=== PATIENT | male | born 1950 | race Two or more races ===

== ENCOUNTER 2016-11-27 08:14 | Day surgery (SDC) | payer OTHER ==
[~2016-11-27] VITALS: Ht 165.1 cm; Wt 78.9 kg
[2016-11-27 09:24] VITALS: Ht 165.1 cm; Wt 78.9 kg
[2016-11-27] MEDS ORDERED: HIGH CHOLESTEROL MED PO (09:42)
[2016-11-27] MEDS ORDERED: IBUPROFEN PO (09:42)
[2016-11-27] MEDS ORDERED: HTN MED PO (09:42)
[2016-11-27 09:55] VITALS: BP 159/91; PULSE 72; RESP 24
[2016-11-27] MEDS ORDERED: FENTAnyl 50 MCG/ML VIAL ONE (10:39)
[2016-11-27] MEDS ORDERED: MIDAZOLAM 1 MG/ML 2 ML INJ ONE ×2 (10:39)
[2016-11-27 11:03] VITALS: BP 134/80; RESP 20
--- NOTE | 2016-11-27 23:17 | GILP ---
DATE OF PROCEDURE: PROCEDURE: Colonoscopy with polypectomy. INDICATION: A 66-year-old male undergoing this procedure for colon cancer screening. The risks of the procedure, related and unrelated complications, sedative risks, alternatives discussed and infor med consent was obtained. DESCRIPTION OF PROCEDURE: The patient was brought to the GI lab, sedated with Versed 4 mg, fentanyl 75 mg. After optimal sedation, digital examination done, which was normal. Scope was passed with much ease into the rectum and advanced slowly through sigmoid, descending, transverse colon all the way into the cecum. Appendiceal orifice and IC valve identified. Four polyps were seen in the asce nding colon, each one was removed, 1 to 1.5 cm in diameter. Three polyps successfully removed by ho t snare technique with the help of Fuentes biopsy basket I could retrieve 2 polyps. The third was floa ting distally and could not get into the Fuentes basket. So the Fuentes basket and the entire scope was r emoved. The patient was rescoped again. I reached the cecum and the third large polyp floating in the water was identified. With the suction, the entire polyp was suctioned. Half was inside the bi opsy channel and half was protruding out. I could remove the whole scope and sent the polyp for kourtney lysis. So the 3 polyps were successfully retrieved. There was another small polyp about 6 to 7 mm in diameter, which could not be removed. The rest of the colon appeared normal. There was semi-for med stool in the form of ____ angulation. IMPRESSION: 1. Normal finding all the way into the cecum except for 4 polyps, 3 were successfully removed by ho t snare technique and retrieved. Each one was about 1.5 cm in diameter. 2. Inadequate prep. 3. Negative otherwise. PLAN: Review the histopathology of the polyp. The patient definitely needs colonoscopy in 1 year t o remove another polyp in the right side of the colon. Dictated By: PEYTON MERINO/NTS Conf#: [id number] DID#: [id number] CC: PEYTON PIPER MD;*EndCC*
== END 2016-11-27 10:53 | disposition home or self-care (01) ==
LOC: GIL 08:14
PROVIDERS: ATTEND Internal Medicine Gastroenterology
DX: Z12.11 Encounter for screening for malignant neoplasm of colon (principal); D12.2 Benign neoplasm of ascending colon
CPT/HCPCS: 45385; 88305; J2250; J3010